=== PATIENT | female | born 1995 | race Caucasian/White ===

== ENCOUNTER → 2022-06-04 | Outpatient (CLI) | payer BC ==
--- NOTE | 2022-06-04 16:07 | Diagnostic Imaging Report ---
INDICATION: survey. TECHNIQUE: Multiple real-time grayscale images were obtained over the gravid uterus. COMPARISON: None. FINDINGS: There is a single live fetus in a cephalic presentation. heart rate was recorded at 142 BPM. Placenta is anterior. No previa is detected. Amniotic fluid index is 12.2 cm. survey shows kidneys, bladder, and stomach to be unremarkable. brain is unremarkable. There is a four-chamber heart. There is a three-vessel cord with normal insertion. spine is unremarkable. Biometrical measurements are as follows: Biparietal 4.46 cm, age 19 weeks 4 days. Head circumference 17.23 cm, age 19 weeks 6 days. Abdominal circumference 15.02 cm, age 20 weeks 2 days. Femur length 3.47 cm, age 21 weeks 0 days. Sonographic estimate age: 20 weeks 2 days. Sonographic estimated date of delivery: 10/20/2022. Estimated Weight: 355 gm (+/- 52 gm). LMP percentile: 79%. heart rate: 142 beats per minute. number: 1 of 1. IMPRESSION: Single live IUP of 20 weeks 2 days gestational age. Estimated date of confinement sonographically is 10/20/2022. Dictated by: Dictated on workstation # [id number]
== END ==
LOC: RAD 09:47
PROVIDERS: ATTEND Nurse Practitioner Women's Health
DX: Z34.02 Encounter for supervision of normal first pregnancy, second trimester (principal); Z3A.20 20 weeks gestation of pregnancy
CPT/HCPCS: 76805

== ENCOUNTER 2022-10-28 13:57 | Inpatient (IN) | payer BC ==
[~2022-10-28] VITALS: Ht 167.8 cm; Wt 77.8 kg
[2022-10-28] VITALS (44 sets, daily range): BP systolic 96–137; BP diastolic 50–83
[2022-10-28] MEDS ORDERED: LIDOCAINE 1% INJ 20 ML VIAL IJ PRN (14:15)
[2022-10-28] MEDS ORDERED: AMPICILLIN FOR IV USE 2,000 MG in NS (IVPB) 50 ML IV ONE (14:30)
[2022-10-28 14:34] LABS: EOSINOPHILS % (AUTO) 0 % (0-10); MEAN CORPUSCULAR HEMOGLOBIN 30 pg (25-34); MEAN CORPUSCULAR HGB CONC 34 g/dL (32-36)
[2022-10-28 14:35] LABS: BASOPHILS % (AUTO) 0 % (0-10); HEMATOCRIT 41 % (35-52); HEMOGLOBIN 13.9 g/dL (11.5-16.0); LYMPHOCYTES # (AUTO) 1.3 10^3/uL (1.0-4.0); LYMPHOCYTES % (AUTO) 11 % (12-44); MEAN CORPUSCULAR VOLUME 89 fL (80-99); MEAN PLATELET VOLUME 11.7 fL (9.0-12.2); MONOCYTES # (AUTO) 0.6 10^3/uL (0.0-1.0); MONOCYTES % (AUTO) 5 % (0-12); NEUTROPHILS # (AUTO) 10.1 10^3/uL (1.8-7.8); NEUTROPHILS % (AUTO) 84 % (42-75); PLATELET COUNT 260 10^3/uL (130-400); WHITE BLOOD COUNT 12.1 10^3/uL (4.3-11.0)
[2022-10-28] MEDS ORDERED: BUPIVACAINE 0.25% 10 ML (SENSORCAINE) VIAL ONE (15:09)
[2022-10-28] MEDS ORDERED: fentaNYL INJ 100 MCG/2 ML AMP ONE (15:09)
[2022-10-28] MEDS ORDERED: fentaNYL 2 mcg/ml BUPIVA 0.125 100 ML ONE (15:11)
[2022-10-28] MEDS: D5 LR IV SOLUTION 1,000 ML IV SCH (15:19)
[2022-10-28] MEDS ORDERED: ONDANSETRON 4 MG/2 ML (SDV) Z0FRAN ONE (15:32)
[2022-10-28] MEDS: fentaNYL 2 mcg/ml BUPIVA 0.125 100 ML IV SCH (15:35)
[2022-10-28] MEDS ORDERED: NALOXONE 0.4 MG/ML 1 ML (NARCAN) VIAL IV PRN (16:00)
[2022-10-28] MEDS ORDERED: CATHETER FLUSH 10 ML SYR IV PRN (16:00)
[2022-10-28] MEDS ORDERED: LACTATED RINGERS 1,000 ML IV ONE (16:00)
--- NOTE | 2022-10-28 16:30 | History & Physical-OB/GYN ---
SABRINA VARNER 10/28/22 1630: OB - Chief Complaint & HPI Date/Time Date of Admission: Date of Admission: Oct 28, 2022 at 13:57 Date seen by a Provider: Oct 28, 2022 Time Seen by a Provider: 16:30 Chief Complaint/History OB-Reason for Admission/Chief: Onset of Labor Hx : 1 Hx Para: 0 Expected Date of Delivery: Oct 23, 2022 Gestational Age in Weeks: 40 Gestational Age in Days: 5 Admission Nurse Assessment Rev: Yes History of Labs See prenatals. Allergies and Home Medications Allergies Coded Allergies: No Known Drug Allergies (Unverified , 10/28/22) Patient Home Medication List Home Medication List Reviewed: Yes OB - History Hx of Present Care: Yes Obstetrical Complications: None Medical Complications: None Patient Past Medical History n/a OB - Admission Exam Physical Exam HEENT: NCAT Heart: Rhythm Normal Lungs: Clear Abdomen: Gravid Extremities: Normal Cervical Dilatation: 7cm Effacement: 75% Station: 0 Membranes: Intact Heart Rate: 130's Decelerations: No Decelerations Short Term Variability: Present Custodial Variability: Average (6-25) Intensity: Firm Labs Laboratory Tests Test 10/28/22 14:15 Range/Units White Blood Count 12.1 H 4.3-11.0 10^3/uL Red Blood Count 4.59 3.80-5.11 10^6/uL Hemoglobin 13.9 11.5-16.0 g/dL Hematocrit 41 35-52 % Mean Corpuscular Volume 89 80-99 fL Mean Corpuscular Hemoglobin 30 25-34 pg Mean Corpuscular Hemoglobin Concent 34 32-36 g/dL Red Cell Distribution Width 13.2 10.0-14.5 % Platelet Count 260 130-400 10^3/uL Mean Platelet Volume 11.7 9.0-12.2 fL Immature Granulocyte % (Auto) 1 % Neutrophils (%) (Auto) 84 H 42-75 % Lymphocytes (%) (Auto) 11 L 12-44 % Monocytes (%) (Auto) 5 0-12 % Eosinophils (%) (Auto) 0 0-10 % Basophils (%) (Auto) 0 0-10 % Neutrophils # (Auto) 10.1 H 1.8-7.8 10^3/uL Lymphocytes # (Auto) 1.3 1.0-4.0 10^3/uL Monocytes # (Auto) 0.6 0.0-1.0 10^3/uL Eosinophils # (Auto) 0.0 0.0-0.3 10^3/uL Basophils # (Auto) 0.0 0.0-0.1 10^3/uL Immature Granulocyte # (Auto) 0.1 0.0-0.1 10^3/uL Percent Immature Platelet Fraction 6.6 0.0-7.6 % OB - Assessment/Plan/Diagnosis Assessment Assessment: active labor Admission Dx 27 yo at 40.5 wga Active labor GBS positive Admission Status: Inpatient Order (span 2 midnights) Reason for Inpatient Admission: Active labor 40 weeks Plan Plan: Expectant Management (AROM) Supervisory-Addendum Brief Verification & Attestation Participated in pt care: history, MDM, physical Personally performed: history, MDM Care discussed with: Medical Student Procedures: n/a Verification and Attestation of Medical Student E/M Service A medical student performed and documented this service in my presence. I reviewed and verified all information documented by the medical student and made modifications to such information, when appropriate. I personally performed the physical exam and medical decision making. HAMMAD FISHER DO 10/28/22 2332: Allergies and Home Medications Allergies Coded Allergies: No Known Drug Allergies (Unverified , 10/28/22) Supervisory-Addendum Brief Verification & Attestation Verification and Attestation of Medical Student E/M Service A medical student performed and documented this service in my presence. I reviewed and verified all information documented by the medical student and made modifications to such information, when appropriate. I personally performed the physical exam and medical decision making. Hammad Fisher, Oct 28, 2022,23:32 SABRINA VARNER Oct 28, 2022 16:30 HAMMAD FISHER DO Oct 28, 2022 23:32
[2022-10-28] MEDS ORDERED: ONDANSETRON 4 MG/2 ML (SDV) Z0FRAN IVP NR (18:00)
[2022-10-28] MEDS: AMPICILLIN FOR IV USE 1,000 MG in NS (IVPB) 50 ML IV SCH ×2 (18:40→23:15)
[2022-10-28] MEDS ORDERED: CATHETER FLUSH 10 ML SYR IV SCH (22:00)
[2022-10-28] MEDS ORDERED: ONDANSETRON 4 MG/2 ML (SDV) Z0FRAN IVP ONE (22:15)
[2022-10-29] VITALS (15 sets, daily range): BP systolic 92–145; BP diastolic 51–74
[2022-10-29] MEDS: D5 LR IV SOLUTION 1,000 ML IV SCH (00:02)
[2022-10-29] MEDS: fentaNYL 2 mcg/ml BUPIVA 0.125 100 ML IV SCH (00:03)
[2022-10-29] MEDS ORDERED: OXYTOCIN PRE-MIX DRIP 500 ML IV ONE ×2 (00:45→01:50)
[2022-10-29] MEDS: OXYTOCIN PRE-MIX DRIP 500 ML IV SCH ×2 (01:19→01:54)
[2022-10-29] MEDS ORDERED: HYDROcodone/APAP 5 MG/325 MG (LORTAB) TAB PO PRN (01:45)
[2022-10-29] MEDS ORDERED: MEASLES,MUMPS,RUBELLA 1 EA INJ SQ ONE (01:45)
[2022-10-29] MEDS ORDERED: TETANUS,DIPTH,PERTUSS P/F (BOOSTRIX) 0.5 ML VIAL IM ONE (01:45)
[2022-10-29] MEDS ORDERED: WITCH HAZEL(TUCKS) 40 EA JAR TOP PRN (01:45)
[2022-10-29] MEDS ORDERED: NALOXONE 0.4 MG/ML 1 ML (NARCAN) VIAL IV PRN (01:45)
[2022-10-29] MEDS ORDERED: BENZOCAINE/MENTHOL (DERMOPLAST) 56 ML CAN TP PRN (01:45)
[2022-10-29] MEDS ORDERED: DIBUCAINE 1% OINTMENT 28 GM TUBE TOP PRN (01:45)
--- NOTE | 2022-10-29 01:47 | OB Labor & Delivery Record ---
L&D History Date of Service Date of Service: Oct 29, 2022 History Expected Date of Delivery: Oct 23, 2022 Gestational Age in Weeks: 40 Hx : 1 Hx Para: 0 Complications Events: Routine care Operative Indications (Cesarea: N/A-Vaginal Delivery Intrapartal Events: None L&D Stage1 Stage One Onset of Labor - Date: Oct 29, 2022 Monitors and Tracing Monitor Mode: External Heart Rate: 145 Monitor Accelerations: Uniform Monitor Decelerations: None Station: +1 Ceiling Cleaner Variability: Average (6-10) Short Term Variability: Present Presentation: Vertex Vital Signs VS - Last 72 Hours, by Label 10/28/22 10/28/22 10/28/22 10/28/22 14:30 14:45 14:48 15:05 Temp 37.2 37.2 37.6 37.2 Pulse 82 82 71 84 Resp 18 18 18 18 B/P (MAP) 113/77 (89) 120/77 (91) 115/83 (94) Pulse Ox 98 O2 Delivery Room Air Room Air Room Air Room Air 10/28/22 10/28/22 10/28/22 10/28/22 15:15 15:20 15:25 15:30 Temp 37.2 37.2 37.2 37.2 Pulse 64 79 80 74 Resp 16 16 16 18 B/P (MAP) 118/60 (79) 122/64 (83) 123/67 (85) 130/70 (90) Pulse Ox 99 100 97 100 O2 Delivery Room Air Room Air Room Air Room Air 10/28/22 10/28/22 10/28/22 10/28/22 15:35 15:40 15:45 15:50 Temp 37.2 36.4 36.4 36.4 Pulse 110 95 76 76 Resp 18 18 18 18 B/P (MAP) 137/77 (97) 102/67 (79) 121/71 (88) 117/73 (88) Pulse Ox 100 100 99 100 O2 Delivery Room Air Room Air Room Air Room Air 10/28/22 10/28/22 10/28/22 10/28/22 15:55 16:00 16:05 16:10 Temp 36.4 36.4 36.4 36.4 Pulse 88 83 101 95 Resp 18 18 18 18 B/P (MAP) 109/71 (84) 109/72 (84) 103/67 (79) 106/71 (83) Pulse Ox 99 99 99 99 O2 Delivery Room Air Room Air Room Air Room Air 10/28/22 10/28/22 10/28/22 10/28/22 16:15 16:35 16:50 17:05 Temp 36.4 36.4 36.4 36.4 Pulse 54 83 81 89 Resp 18 18 18 18 B/P (MAP) 112/68 (83) 104/71 (82) 117/75 (89) 111/69 (83) Pulse Ox 98 98 99 100 O2 Delivery Room Air Room Air Room Air Room Air 10/28/22 10/28/22 10/28/22 10/28/22 17:20 17:35 17:50 18:05 Temp 36.4 36.4 36.4 36.4 Pulse 99 69 75 90 Resp 18 18 18 18 B/P (MAP) 106/71 (83) 106/71 (83) 122/71 (88) 105/72 (83) Pulse Ox 98 O2 Delivery Room Air Room Air Room Air Room Air 10/28/22 10/28/22 10/28/22 10/28/22 18:30 18:45 19:00 19:15 Temp 36.4 36.4 36.4 35.5 Pulse 53 65 65 60 Resp 18 18 18 B/P (MAP) 110/68 (82) 106/60 (75) 116/70 (85) 113/69 (84) Pulse Ox 100 100 O2 Delivery Room Air Room Air Room Air 10/28/22 10/28/22 10/28/22 10/28/22 19:30 19:45 20:15 20:30 Pulse 49 53 50 51 B/P (MAP) 108/58 (75) 106/59 (75) 110/55 (73) 101/50 (67) O2 Delivery Nasal Cannula O2 Flow Rate 15.00 10/28/22 10/28/22 10/28/22 10/28/22 20:45 21:00 21:15 21:30 Temp 37.1 Pulse 49 49 51 49 Resp 18 B/P (MAP) 96/50 (65) 97/54 (68) 98/57 (71) 99/55 (70) Pulse Ox 97 10/28/22 10/28/22 10/28/22 10/28/22 22:00 22:15 22:30 22:45 Pulse 72 67 65 85 B/P (MAP) 132/68 (89) 111/67 (82) 113/68 (83) 115/71 (86) 10/28/22 10/28/22 10/28/22 23:00 23:15 23:30 Pulse 67 70 70 B/P (MAP) 116/68 (84) 116/68 (84) 124/72 (89) Rupture of Membranes Spontaneous Ruture of Membrane: No Amniotic Membrane Rupture Time: 1638 Amniotic Membrane Fluid Desc.: Clear Vaginal Bleeding Description: Normal Show Induction/Anesthesia Epidural Cath Placement - Time: 1525 Progress/Notes Patient admitted from the office in active labor. AROM performed after admission. Epidural placed, the patient progressed with no further augmentation to complete and +2 station. L&D Stage2 Stage Two Stage II Date: Oct 29, 2022 Monitors and Tracing Monitor Mode: External Heart Rate: 145 Monitor Accelerations: Uniform Monitor Decelerations: Variable Ceiling Cleaner Variability: Average (6-10) Short Term Variability: Present Position: Right Occiput Anterior Presentation: Vertex Cord Descript/Complications Cord Vessel Description: 3 Vessels Delivery Type Delivery Method: Spontaneous Vaginal Anterior Shoulder: Left Episiotomy/Perineal Laceration Laceraction(s)/Extensions: Yes Episiotomy Description: Periurethral Extnsion/lac (bilateral periurethral and 2nd degree perineal laceration repaired using 3-0 rapide and 2-0 vicryl suture in usual fashion.), Perineal Extension/lac, 2nd degree Condition of Delivery 1 minute Comment: 8 5 minute Comment: 9 Notes Live female weight 7lbs 9oz Condition of Infant Condition of : Living Exam: No Observed Abnormalities Resuscitation Resuscitation: N/A - Spontaneous Resp L&D Stage3 Stage Three Stage III Date: Oct 29, 2022 Pictocin Pitocin Administration Comment: 30 mu wide open after delivery of placenta Placenta Delivery Placenta Delivery: Spontaneous Delivery Summary Summary Estimated blood loss (mL): 350 Attending at delivery: Chanda Fisher DO Condition of Delivery Examined: Cervix Examined, Uterus Explored Post Hemorrhage: No Condition of Mother stable Condition of Infant (s) stable CHANDA FISHER DO Oct 29, 2022 01:47
[2022-10-29] MEDS ORDERED: IBUPROFEN 600 MG (MOTRIN) TAB PO ONE (01:50)
[2022-10-29] MEDS: IBUPROFEN 600 MG (MOTRIN) TAB PO SCH ×4 (01:54→21:11)
--- NOTE | 2022-10-29 08:59 | Anesthesia-Regional Post-Op ---
Regional Patient Condition Mental Status: Alert, Oriented x3 Circulation: Same as Pre-Op Headache: Absent Sensation: Full Recovery Motor Block: Absent Post Op Complications Complications None Follow Up Care/Instructions Patient Instructions None needed. Anesthesia/Patient Condition Patient is doing well, no complaints, stable vital signs, no apparent adverse anesthesia problems. No complications reported per nursing. BRIDGER TAPIA CRNA Oct 29, 2022 08:59
[2022-10-29] MEDS: DOCUSATE SODIUM 100 MG (COLACE) CAP PO SCH ×2 (09:05→21:11)
[2022-10-29] MEDS: PRENATAL VITAMIN 1 EA TAB PO SCH (09:05)
[2022-10-29] MEDS: FERROUS SULF 325 MG (IRON) TAB PO SCH (09:05)
[2022-10-29] MEDS: CATHETER FLUSH 10 ML SYR IV SCH (15:00)
[2022-10-30 01:22] VITALS: BP 106/60
[2022-10-30 07:06] LABS: BASOPHILS # (AUTO) 0.1 10^3/uL (0.0-0.1); BASOPHILS % (AUTO) 0 % (0-10); EOSINOPHILS # (AUTO) 0.1 10^3/uL (0.0-0.3); EOSINOPHILS % (AUTO) 1 % (0-10); HEMATOCRIT 37 % (35-52); HEMOGLOBIN 12.2 g/dL (11.5-16.0); LYMPHOCYTES % (AUTO) 17 % (12-44); MEAN CORPUSCULAR HEMOGLOBIN 30 pg (25-34); MEAN CORPUSCULAR HGB CONC 33 g/dL (32-36); MEAN CORPUSCULAR VOLUME 91 fL (80-99); MEAN PLATELET VOLUME 10.9 fL (9.0-12.2); MONOCYTES # (AUTO) 0.7 10^3/uL (0.0-1.0); MONOCYTES % (AUTO) 7 % (0-12); NEUTROPHILS # (AUTO) 8.4 10^3/uL (1.8-7.8); NEUTROPHILS % (AUTO) 74 % (42-75); PLATELET COUNT 241 10^3/uL (130-400); WHITE BLOOD COUNT 11.3 10^3/uL (4.3-11.0)
[2022-10-30 07:45] VITALS: BP 113/69
[2022-10-30] MEDS: PRENATAL VITAMIN 1 EA TAB PO SCH (07:49)
[2022-10-30] MEDS: DOCUSATE SODIUM 100 MG (COLACE) CAP PO SCH (07:51)
[2022-10-30] MEDS: IBUPROFEN 600 MG (MOTRIN) TAB PO SCH ×2 (07:51→13:40)
[2022-10-30] MEDS: FERROUS SULF 325 MG (IRON) TAB PO SCH (07:52)
--- NOTE | 2022-10-30 08:13 | Postpartum Progress Note ---
Note Note Day # 1 Subjective: Patient is without complaints. Ambulating, voiding. Tolerating a regular diet without nausea or vomiting. Normal lochia. Pain is well controlled with oral pain medications. Objective: Physical Exam: General - Alert and oriented, no apparent distress Abdomen - Soft, appropriately tender to palpation, non-distended, fundus firm at umbilicus Extremities - no edema, negative Vanessa's bilaterally Assessment: PPD 1 NVD Plan: Routine care. Encourage breast feeding. Encourage ambulation. Ferrous sulfate supplementation. Plan for discharge today Vitals - Labs Vital Signs - I&O Vital Signs Date Time Temp Pulse Resp B/P (MAP) Pulse Ox O2 Delivery O2 Flow Rate FiO2 10/30/22 01:22 35.9 56 18 106/60 (75) 99 Room Air 10/29/22 22:06 36.9 62 18 114/58 (76) 100 10/29/22 16:20 36.3 61 16 122/58 (79) 99 Room Air 10/29/22 13:04 36.9 57 16 102/56 (71) 98 Room Air 10/29/22 08:56 36.4 55 16 92/51 (65) 99 Room Air Labs Laboratory Tests 10/30/22 05:54: White Blood Count 11.3H, Red Blood Count 4.04, Hemoglobin 12.2, Hematocrit 37, Mean Corpuscular Volume 91, Mean Corpuscular Hemoglobin 30, Mean Corpuscular Hemoglobin Concent 33, Red Cell Distribution Width 13.4, Platelet Count 241, Mean Platelet Volume 10.9, Immature Granulocyte % (Auto) 1, Neutrophils (%) (Auto) 74, Lymphocytes (%) (Auto) 17, Monocytes (%) (Auto) 7, Eosinophils (%) (Auto) 1, Basophils (%) (Auto) 0, Neutrophils # (Auto) 8.4H, Lymphocytes # (Auto) 2.0, Monocytes # (Auto) 0.7, Eosinophils # (Auto) 0.1, Basophils # (Auto) 0.1, Immature Granulocyte # (Auto) 0.1 CHANDA FISHER DO Oct 30, 2022 08:12
--- NOTE | 2022-10-30 08:13 | Discharge Inst-Women's Service ---
Discharge Inst-Women's Serv Depart Medication/Instructions New, Converted or Re-Newed RX: Transmitted to Pharmacy Final Diagnosis PPD 1 NVD Problems Reviewed?: Yes Consults/Follow Up Additional Follow Up: Yes Orders/Referrals Dr. Fisher in 6 weeks Activity Activity: Activity as Tolerated Driving Instructions: No Driving for 1 Week NO SMOKING: NO SMOKING Nothing Inside Vagina: No Douching, No [place], No Tampons Diet Discharge Diet: No Restrictions Symptoms to Report to : Bleeding Excessive, Pain Increased, Fever Over 101 Degrees F, Vaginal Bleeding Increase, Questions/Concerns For Any Problems or Questions: Contact Your Physician CHANDA FISHER DO Oct 30, 2022 08:13
[2022-10-30] MEDS ORDERED: DOCU100C37 PO (08:14)
[2022-10-30] MEDS ORDERED: ACHD5005 PO (08:14)
[2022-10-30] MEDS ORDERED: IBUP-844 PO (08:14)
[2022-10-30 13:45] VITALS: BP 113/69
== END 2022-10-30 13:45 | disposition home or self-care (01) | DRG 807 ==
LOC: LDRP 13:57
PROVIDERS: ADMIT Obstetrics & Gynecology; ATTEND Obstetrics & Gynecology
PROC: 10E0XZZ Delivery of Products of Conception, External Approach (ICD-10-PCS; principal; 2022-10-29)
PROC: 0KQM0ZZ Repair Perineum Muscle, Open Approach (ICD-10-PCS; 2022-10-29)
PROC: 0UQMXZZ Repair Vulva, External Approach (ICD-10-PCS; 2022-10-29)
DX: O48.0 Post-term pregnancy (principal); Z37.0 Single live birth; O99.824 Streptococcus B carrier state complicating childbirth; O70.1 Second degree perineal laceration during delivery; O71.82 Other specified trauma to perineum and vulva; Z3A.40 40 weeks gestation of pregnancy
CPT/HCPCS: 36415; 85025; 86780; 86850; 86900; 86901